=== PATIENT | female | born 1975 | race African-American/Black ===

== ENCOUNTER → 2020-06-20 | Day surgery (SDC) | payer BC ==
[~2020-06-20] MED LIST: IV RINGERS,LACTATED 1000ML 1,000 ML IV SCH; LEVO150T5 PO; PROPOFOL 10 MG/ML (20ML) VIAL. IV ONE
[2020-06-20 09:43] VITALS: BP 115/82
--- NOTE | 2020-06-23 18:09 | PATHOLOGY ---
[facility] Accession Number: [id number] . 01 Material submitted: . cecum - CECAL POLYP BIOPSY . 01 Clinical history: . RECTAL BLEEDING COLONOSCOPY . 02 Diagnosis: Colon biopsies, cecal polyp: - Tubular adenoma. (OBIM:marcelo; 06/23/2020) MBR 06/23/2020 1603 Local . 02 Comment: There is no high-grade dysplasia or evidence of malignancy. (OBIM:marcelo; 06/23/2020) . 02 Electronically signed: . Enzo Bo MD, Pathologist NPI- [id number] . 01 Gross description: . Received in formalin labeled "Rolando, Jennifer, cecal polyp biopsy" are multiple alvarez-brown soft tissue fragments measuring in aggregate 1.6 x 0.5 x 0.2 cm. The specimen is submitted entirely in A1. ([facility]; 06/21/2020) GZA/GZA 06/21/2020 0935 Local . 02 Pathologist provided ICD-10: D12.0 . 02 CPT . 161201 Specimen Comment: A courtesy copy of this report has been sent to [phone], [phone] Specimen Comment: [id number] Specimen Comment: Report sent to / Performed at: 01 [facility] [address], [place] [id number] MD Ermias Lock MD Phone: [phone] Performed at: 02 [facility] [address] [place], [place] [id number] MD Enzo Bo MD Phone: [phone]
== END | disposition home or self-care (01) ==
LOC: ENDOS 07:18
PROVIDERS: ATTEND Internal Medicine Gastroenterology
DX: K92.1 Melena (principal); K64.0 First degree hemorrhoids; D12.0 Benign neoplasm of cecum; K57.30 Diverticulosis of large intestine without perforation or abscess without bleeding; K63.89 Other specified diseases of intestine; Z90.710 Acquired absence of both cervix and uterus; Z98.51 Tubal ligation status; Z98.890 Other specified postprocedural states; Z79.899 Other long term (current) drug therapy; Z88.6 Allergy status to analgesic agent; Z20.822 Contact with and (suspected) exposure to COVID-19
CPT/HCPCS: 45380; 87426; 88305; J2704